=== PATIENT | female | born 1985 | race Caucasian/White ===

== ENCOUNTER 2017-01-20 07:31 | Emergency (ER) | payer MEDICAID ==
[2017-01-20 07:50] VITALS: BP 124/84; PULSE 83; RESP 18; TEMP 99; O2SAT 98
[2017-01-20] MEDS ORDERED: ACETAMINOPHEN 325 MG TAB PO ONE (08:24)
[2017-01-20] MEDS ORDERED: IBUPROFEN 600 MG TAB PO ONE (08:24)
--- NOTE | 2017-01-20 08:36 | UCPHY ---
H & P Time Seen by Provider: 01/20/17 07:47 Patient Type: Established HPI/ROS: CHIEF COMPLAINT: Fever and body aches HPI: The patient is a 31-year-old female with no significant past medical history. She reports approximately 4 days of diffuse body aches including headache, neck pain, bilateral eye pain, bilateral ear pain and bilateral extremity pain. She complains of subjective fever, sore throat and some nausea. She denies abdominal pain. She did not receive a flu shot this year. She has not traveled to any foreign country in the last month. Prior to that she was in [facility]. REVIEW OF SYSTEMS: Aside from elements discussed in the HPI, a comprehensive 10-point review of systems was reviewed and is negative. PMH: None significant. SOCIAL HISTORY: Single. 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 FAMILY HISTORY: Reviewed, noncontributory PHYSICAL EXAM: General:Patient is alert, in no acute distress. ENT:Eyes are normal to inspection. ENT inspection normal. Bilateral TMs are normal. Neck: Normal inspection. Full range of motion. No meningismus. Respiratory:No respiratory distress. Breath sounds normal bilaterally. Cardiovascular: Regular rate and rhythm. Strong peripheral pulses. Normal cap refill. Abdomen:The abdomen is nontender to palpation. There are no peritoneal signs. There are normal bowel sounds. Back: Normal to inspection. No tenderness to palpation. Skin: Normal color. No rash. Warm and dry. Extremities: Normal appearance. Full range of motion. Neuro: Oriented x3. Normal motor function. Normal sensory function. Smoking Status: Never smoked Constitutional: Initial Vital Signs Temperature (C) 37.2 C 01/20/17 07:45 Heart Rate 83 01/20/17 07:45 Respiratory Rate 18 01/20/17 07:45 Blood Pressure 124/84 H 01/20/17 07:45 O2 Sat (%) 98 01/20/17 07:45 O2 Delivery Mode Room Air Allergies/Adverse Reactions: No Known Allergies Allergy (Unverified 01/20/17 07:50) Home Medications: Medication Instructions Recorded Oseltamivir Phosphate [Tamiflu 75 75 mg PO BID 5 Days 01/20/17 mg (RX)] MDM/Departure - MDM Medications Given: Discontinued Medications Acetaminophen (Tylenol) 650 mg PO EDNOW ONE Stop: 01/20/17 08:25 Last Admin: 04/07/17 08:29 Dose: 650 mg Ibuprofen (Motrin) 600 mg PO EDNOW ONE Stop: 01/20/17 08:25 Last Admin: 01/20/17 08:30 Dose: 600 mg ED Course/Re-evaluation: This patient presents with signs and symptoms of influenza, confirmed by positive test for flu B. patient complains of headache and stiff neck, but clearly has no meningeal signs on exam and I think this is likely explainable secondary to diffuse body aches. I explained this to the patient and she is comfortable with this plan as well as comfortable with the plan to attempt care at home. She has had symptoms 4 days so I do not think Tamiflu will necessarily be helpful. - Depart Disposition: Home, Routine, Self-Care Clinical Impression: Influenza B Condition: Good Instructions: Influenza (ED) Additional Instructions: Take ibuprofen and Tylenol around the clock, as directed. Drink plenty of fluids. Return to the hospital for severe headache, neck stiffness or other concerns. Prescriptions: Oseltamivir Phosphate [Tamiflu 75 mg (RX)] 75 mg PO BID 5 Days Referrals: NONE *PRIMARY CARE P,. [Primary Care Provider] - As per Instructions - PQRS PQRS Measurement: 134: Depression screening and followup, PRIME MD-PHQ2 (12 years and older) Over the last 2 weeks, how often have you been bothered by any of the following problems? 1. Feeling down, depressed, or hopeless? 2. Little interest or pleasure in doing things? Patient answered no to both 1 and 2 130: Documentation of medications. Reviewed all patient medications, doses, route and frequency. 226: Do you smoke? No. 51: 18 years old and older with diagnosis of COPD, spirometry performance. Spirometry not performed; equipment not available. Patient has no history of COPD 52: 18 years old and older with COPD and symptoms of COPD or FEV1<60% predicted prescribed a B Agonist. Spirometry not performed; equipment not available.
== END 2017-01-20 09:04 | disposition home or self-care (01) ==
LOC: CED 07:31
DX: J10.1 Influenza due to other identified influenza virus with other respiratory manifestations (principal)
CPT/HCPCS: 87400-PO; 99214-PO; G0463-PO

== ENCOUNTER → 2017-08-02 | Outpatient (CLI) | payer MEDICAID | LOC: FIMAGING 15:14 | PROVIDERS: ATTEND Family Medicine | DX: M41.84 Other forms of scoliosis, thoracic region (principal) ==

== ENCOUNTER → 2017-09-26 | Outpatient (CLI) | payer MEDICAID | LOC: FIMAGING 06:57 | PROVIDERS: ATTEND Family Medicine | DX: M75.81 Other shoulder lesions, right shoulder (principal) ==

== ENCOUNTER → 2018-12-12 | Outpatient (CLI) | payer MEDICAID | LOC: FIMAGING 13:42 | PROVIDERS: ATTEND Family Medicine | DX: M51.34 Other intervertebral disc degeneration, thoracic region (principal); M51.36 Other intervertebral disc degeneration, lumbar region; Z87.828 Personal history of other (healed) physical injury and trauma ==